=== PATIENT | female | born 2000 | race Caucasian/White ===

== ENCOUNTER 2022-07-04 23:03 | Emergency (ER) | payer OTHER, SELFPAY ==
[2022-07-04 23:14] VITALS: BP 118/78; PULSE 83; RESP 18; TEMP 36.7; O2SAT 99; BMI 34.4
--- NOTE | 2022-07-04 23:21 | ED.GENADULT ---
HPI - General Adult General Time Seen by Provider: 23:21 <Juan Macdonald MD - Last Filed: 07/10/22 00:07> Date Seen: 07/04/22 <Juan Macdonald MD - Last Filed: 07/10/22 00:07> Chief complaint: Psychiatric Problem/Disorder <Juan Macdonald MD - Last Filed: 07/10/22 00:07> Stated complaint: Mental health <Juan Macdonald MD - Last Filed: 07/10/22 00:07> Time Seen by Provider: 07/04/22 23:15 <Juan Macdonald MD - Last Filed: 07/10/22 00:07> Source: patient and RN notes reviewed <Juan Macdonald MD - Last Filed: 07/10/22 00:07> Mode of arrival: ambulatory <Juan Macdonald MD - Last Filed: 07/10/22 00:07> Limitations: no limitations <Juan Macdonald MD - Last Filed: 07/10/22 00:07> History of Present Illness HPI narrative: 21-year-old female who comes in today with mental health evaluation. Patient reports increased feeling of depression for last 6-8 months, although on further interview it sounds like she was seing a therapist last year as well. She is on fluoxetine. She presents today with suicide ideation. She says that she has had some compulsive tendencies of changing her clothes frequently when she comes in goes from her room having ?clean clothes and contaminated clothes. She says she was less able to make this transition night which is unusual for her and then found herself looking around her room for thinks she can use to hurt herself or kill herself. She reports that she has had previous suicide ideation with thoughts of jumping off buildings on campus. No prior suicide attempts. Denies prior mental health admission. <Juan Macdonald MD - Last Filed: 07/10/22 00:07> Related Data Home medications: Home Medications Medication Instructions Recorded Confirmed fluoxetine 20 mg capsule (Prozac) 20 mg PO DAILY 07/04/22 07/04/22 <Juan Macdonald MD - Last Filed: 07/10/22 00:07> Allergies/adverse reactions: Allergies Allergy/AdvReac Type Severity Reaction Status Date / Time No Known Drug Allergies Allergy Verified 07/04/22 23:18 <Juan Macdonald MD - Last Filed: 07/10/22 00:07> [facility] Medical History: Medical History (Updated 07/04/22 @ 23:29 by Juan Macdonald MD) Anxiety Depression OCD (obsessive compulsive disorder) <Juan Macdonald MD - Last Filed: 07/10/22 00:07> Surgical History: Surgical History (Updated 07/04/22 @ 23:20 by Gordon Fitzpatrick RN) No significant past surgical history <Juan Macdonald MD - Last Filed: 07/10/22 00:07> Social History: Social History Smoking Status: Never smoker Do you use any of these nicotine containing products: None Second hand tobacco smoke exposure: No How often do you have a drink containing alcohol: never How often do you have six or more drinks on one occasion: Never AUDIT-C Alcohol total score: 0 Non-prescribed substance use: denies use <Juan Macdonald MD - Last Filed: 07/10/22 00:07> Exam Narrative: Exam Narrative: General: Well-developed and well-nourished, no acute distress Head: Atraumatic and normocephalic Eyes: Pupils are equal reactive, extraocular motions intact, conjunctiva clear ENT: External nose and ears are normal, posterior pharynx without erythema or exudate Neck: No midline cervical tenderness, full spontaneous range of motion the neck, trachea midline, no adenopathy Heart: Regular rate and rhythm no murmurs or thrills Lungs: Clear to auscultation bilaterally without wheezes or crackles Abdomen: Soft, nontender, nondistended with active bowel sounds Musculoskeletal: No tenderness, deformity, or edema Neurologic: Awake, alert, and oriented x3, no gross focal neurologic deficits, cranial nerves intact as tested Psych: Mood appropriate, occasional poor eye contact, fidgeting Skin: No rashes <Juan Macdonald MD - Last Filed: 07/10/22 00:07> Const: Vital Signs, click to edit/add: Vital Signs - 24 hr 07/04/22 23:14 Temperature 98.0 F Pulse Rate [Right Pulse Oximeter] 83 Respiratory Rate 18 Blood Pressure [Ri ght Upper Arm] 118/78 Pulse Oximetry 99 Oxygen Delivery Me thod Room Air <Juan Macdonald MD - Last Filed: 07/10/22 00:07> Vital Signs, click to edit/add: Vital Signs - 24 hr 07/04/22 23:14 Temperature 98.0 F Pulse Rate [Right Pulse Oximeter] 83 Respiratory Rate 18 Blood Pressure [Ri ght Upper Arm] 118/78 Pulse Oximetry 99 Oxygen Delivery Me thod Room Air <Alexa Ybarra MD - Last Filed: 07/05/22 05:26> Course Course Hospital Course: Patient seen and examined, prior records are reviewed. Patient with increasing depression over the last several months, suicide ideation with plan tonight. Labs ordered to medically clear patient for behavioral health admission, the deck assessment requested. Plan sign out to oncoming provider at change of shift. <Juan Macdonald MD - Last Filed: 07/10/22 00:07> Vital Signs Vital signs: Initial Vital Signs Temperature 98.0 F 07/04/22 23:14 Temperature Source Temporal Artery Scan 07/04/22 23:14 Pulse Rate 83 07/04/22 23:14 Respiratory Rate 18 07/04/22 23:14 Blood Pressure 118/78 07/04/22 23:14 Blood Pressure Mean 91 07/04/22 23:14 Blood Pressure Position Sitting 07/04/22 23:14 Pulse Oximetry 99 07/04/22 23:14 Oxygen Delivery Method 07/04/22 23:14 Vital Signs Temperature 98.0 F 07/04/22 23:14 Pulse Rate 83 07/04/22 23:14 Respiratory Rate 18 07/04/22 23:14 Blood Pressure 118/78 07/04/22 23:14 Pulse Oximetry 99 07/04/22 23:14 Oxygen Delivery Method 07/04/22 23:14 Temperature 98.0 F 07/05/22 06:00 Pulse Rate 83 07/05/22 06:00 Respiratory Rate 18 07/05/22 06:00 Blood Pressure 118/78 07/05/22 06:00 Pulse Oximetry 99 07/04/22 23:14 Oxygen Delivery Method 07/04/22 23:14 <Juan Macdonald MD - Last Filed: 07/10/22 00:07> Initial Vital Signs Temperature 98.0 F 07/04/22 23:14 Temperature Source Temporal Artery Scan 07/04/22 23:14 Pulse Rate 83 07/04/22 23:14 Respiratory Rate 18 07/04/22 23:14 Blood Pressure 118/78 07/04/22 23:14 Blood Pressure Mean 91 07/04/22 23:14 Blood Pressure Position Sitting 07/04/22 23:14 Pulse Oximetry 99 07/04/22 23:14 Oxygen Delivery Method 07/04/22 23:14 Vital Signs Temperature 98.0 F 07/04/22 23:14 Pulse Rate 83 07/04/22 23:14 Respiratory Rate 18 07/04/22 23:14 Blood Pressure 118/78 07/04/22 23:14 Pulse Oximetry 99 07/04/22 23:14 Oxygen Delivery Method 07/04/22 23:14 Temperature 98.0 F 07/05/22 06:00 Pulse Rate 83 07/05/22 06:00 Respiratory Rate 18 07/05/22 06:00 Blood Pressure 118/78 07/05/22 06:00 Pulse Oximetry 99 07/04/22 23:14 Oxygen Delivery Method 07/04/22 23:14 <Alexa Ybarra MD - Last Filed: 07/05/22 05:26> Medical Decision Making MDM Narrative Medical decision making narrative: DEC reports suicidal ideation, no trigger or distinct plan. works with school, has OP plan for therapy already. Future oriented, willing to safety plan, will stay with therapist as planned but is willing to work with a transition therapist temporarily. FEels safe returning home with roommates who can help for the next few days. Declines hospitalization, assess or does not think this is necessary at this time as she has a firm outpatient plan. <Alexa Yabrra MD - Last Filed: 07/05/22 05:26> Lab Data Lab results reviewed: Yes I reviewed the patient's lab results <Alexa Ybarra MD - Last Filed: 07/05/22 05:26> Labs: Lab Results 07/04/22 07/04/22 07/04/22 Range/Units 23:24 23:35 23:35 WBC (4.50-11.00) K/uL RBC (4.00-5.20) m/uL Hgb (12.0-16.0) gm/dL Hct (33.0-51.0) % MCV (80-100) fL MCH (26-34) pg MCHC (32-36) gm/dL RDW Coeff of Christianne (11.5-15.5) % Plt Count (140-440) K/uL Neut % (Auto) (42.0-72.0) % Lymph % (Auto) (20-44) % [place] % (Auto) (0.0-11.0) % Eos % (Auto) (0.0-7.0) % Baso % (Auto) (0.0-3.0) % Neut # (Auto) (1.7-7.0) K/uL Lymph # (Auto) (0.90-2.90) K/uL [place] # (Auto) (0.00-0.90) K/UL Eos # (Auto) (0.00-0.50) K/uL Baso # (Auto) (0.00-0.30) K/uL Sodium (135-149) mmol/L Potassium (3.6-5.1) mmol/L Chloride (96-114) mmol/L Carbon Dioxide (20-32) mmol/L BUN (5-24) mg/dL Creatinine (0.5-1.5) mg/dL Estimated Creat Clear Estimated GFR ml/min Glucose (60-115) mg/dL Calcium (8.4-10.6) mg/dL Total Bilirubin 0.5 (0.1-1.5) mg/dL Direct Bilirubin 0.3 (0.0-0.5) mg/dL AST 50 H (12-35) U/L ALT 63 H (4-35) U/L Alkaline Phosphatase 97 (40-150) U/L Total Protein 8.2 (6.0-8.3) g/dL Albumin 4.8 (3.3-5.0) g/dL TSH 6.020 H (0.270-4.200) uIU/mL Free T4 (0.70-1.85) ng/dL HCG, Qual (Negative) Urine Color (Yellow) Urine Appearance (Clear) Urine pH (5.0-8.5) Ur Specific [place] (1.000-1.030) Urine Protein (Negative) Urine Glucose (UA) (Negative) Urine Ketones (Negative) Urine Blood (Negative) Urine Nitrite (Negative) Urine Bilirubin (Negative) Urine Urobilinogen (0.2-1.0) Ur Leukocyte Esterase (Negative) Urine RBC (0-2) Urine WBC (0-5) Ur Squamous Epith Cells (None-Few) Urine Bacteria (None) Urine Mucus (None) Urine Opiates Screen (Negative) Ur Oxycodone Screen (Negative) Urine Methadone Screen (Negative) Ur Propoxyphene Screen (Negative) Ur Barbiturates Screen (Negative) U Tricyclic Antidepress (Negative) Ur Phencyclidine Scrn (Negative) Ur Amphetamines Screen (Negative) U Methamphetamines Scrn (Negative) U Benzodiazepines Scrn (Negative) Urine Cocaine Screen (Negative) U Marijuana (THC) Screen (Negative) Ur Drug Screen Comment Ethyl Alcohol < 0.01 L (0.01-0.03) % SARS-CoV-2 (PCR) Negative SARS-CoV-2 (Negative) Influenza Type A (PCR) Negative PCR FLU A (Negative) Influenza Type B (PCR) Negative PCR FLU B (Negative) 07/04/22 07/04/22 07/04/22 Range/Units 23:35 23:35 23:35 WBC 8.59 (4.50-11.00) K/uL RBC 5.08 (4.00-5.20) m/uL Hgb 14.7 (12.0-16.0) gm/dL Hct 43.2 (33.0-51.0) % MCV 85 (80-100) fL MCH 29 (26-34) pg MCHC 34 (32-36) gm/dL RDW Coeff of Christianne 11.9 (11.5-15.5) % Plt Count 357 (140-440) K/uL Neut % (Auto) 55.4 (42.0-72.0) % Lymph % (Auto) 32.1 (20-44) % [place] % (Auto) 9.9 (0.0-11.0) % Eos % (Auto) 1.6 (0.0-7.0) % Baso % (Auto) 0.3 (0.0-3.0) % Neut # (Auto) 4.75 (1.7-7.0) K/uL Lymph # (Auto) 2.76 (0.90-2.90) K/uL [place] # (Auto) 0.90 (0.00-0.90) K/UL Eos # (Auto) 0.14 (0.00-0.50) K/uL Baso # (Auto) 0.03 (0.00-0.30) K/uL Sodium 141 (135-149) mmol/L Potassium 3.7 (3.6-5.1) mmol/L Chloride 106 (96-114) mmol/L Carbon Dioxide 25 (20-32) mmol/L BUN 16 (5-24) mg/dL Creatinine 0.6 (0.5-1.5) mg/dL Estimated Creat Clear 118.29 Estimated GFR 132 ml/min Glucose 93 (60-115) mg/dL Calcium 9.7 (8.4-10.6) mg/dL Total Bilirubin (0.1-1.5) mg/dL Direct Bilirubin (0.0-0.5) mg/dL AST (12-35) U/L ALT (4-35) U/L Alkaline Phosphatase (40-150) U/L Total Protein (6.0-8.3) g/dL Albumin (3.3-5.0) g/dL TSH (0.270-4.200) uIU/mL Free T4 0.83 (0.70-1.85) ng/dL HCG, Qual (Negative) Urine Color (Yellow) Urine Appearance (Clear) Urine pH (5.0-8.5) Ur Specific [place] (1.000-1.030) Urine Protein (Negative) Urine Glucose (UA) (Negative) Urine Ketones (Negative) Urine Blood (Negative) Urine Nitrite (Negative) Urine Bilirubin (Negative) Urine Urobilinogen (0.2-1.0) Ur Leukocyte Esterase (Negative) Urine RBC (0-2) Urine WBC (0-5) Ur Squamous Epith Cells (None-Few) Urine Bacteria (None) Urine Mucus (None) Urine Opiates Screen (Negative) Ur Oxycodone Screen (Negative) Urine Methadone Screen (Negative) Ur Propoxyphene Screen (Negative) Ur Barbiturates Screen (Negative) U Tricyclic Antidepress (Negative) Ur Phencyclidine Scrn (Negative) Ur Amphetamines Screen (Negative) U Methamphetamines Scrn (Negative) U Benzodiazepines Scrn (Negative) Urine Cocaine Screen (Negative) U Marijuana (THC) Screen (Negative) Ur Drug Screen Comment Ethyl Alcohol (0.01-0.03) % SARS-CoV-2 (PCR) (Negative) Influenza Type A (PCR) (Negative) Influenza Type B (PCR) (Negative) 07/04/22 07/04/22 Range/Units 23:51 23:51 WBC (4.50-11.00) K/uL RBC (4.00-5.20) m/uL Hgb (12.0-16.0) gm/dL Hct (33.0-51.0) % MCV (80-100) fL MCH (26-34) pg MCHC (32-36) gm/dL RDW Coeff of Christianne (11.5-15.5) % Plt Count (140-440) K/uL Neut % (Auto) (42.0-72.0) % Lymph % (Auto) (20-44) % [place] % (Auto) (0.0-11.0) % Eos % (Auto) (0.0-7.0) % Baso % (Auto) (0.0-3.0) % Neut # (Auto) (1.7-7.0) K/uL Lymph # (Auto) (0.90-2.90) K/uL [place] # (Auto) (0.00-0.90) K/UL Eos # (Auto) (0.00-0.50) K/uL Baso # (Auto) (0.00-0.30) K/uL Sodium (135-149) mmol/L Potassium (3.6-5.1) mmol/L Chloride (96-114) mmol/L Carbon Dioxide (20-32) mmol/L BUN (5-24) mg/dL Creatinine (0.5-1.5) mg/dL Estimated Creat Clear Estimated GFR ml/min Glucose (60-115) mg/dL Calcium (8.4-10.6) mg/dL Total Bilirubin (0.1-1.5) mg/dL Direct Bilirubin (0.0-0.5) mg/dL AST (12-35) U/L ALT (4-35) U/L Alkaline Phosphatase (40-150) U/L Total Protein (6.0-8.3) g/dL Albumin (3.3-5.0) g/dL TSH (0.270-4.200) uIU/mL Free T4 (0.70-1.85) ng/dL HCG, Qual Negative (Negative) Urine Color Yellow (Yellow) Urine Appearance Slightly Cloudy A (Clear) Urine pH 7.0 (5.0-8.5) Ur Specific [place] 1.020 (1.000-1.030) Urine Protein Negative (Negative) Urine Glucose (UA) Negative (Negative) Urine Ketones Negative (Negative) Urine Blood Negative (Negative) Urine Nitrite Negative (Negative) Urine Bilirubin Negative (Negative) Urine Urobilinogen 0.2 (0.2-1.0) Ur Leukocyte Esterase Negative (Negative) Urine RBC 0-2 (0-2) Urine WBC 0-2 (0-5) Ur Squamous Epith Cells Few (None-Few) Urine Bacteria Few A (None) Urine Mucus Few A (None) Urine Opiates Screen Negative (Negative) Ur Oxycodone Screen Negative (Negative) Urine Methadone Screen Negative (Negative) Ur Propoxyphene Screen Negative (Negative) Ur Barbiturates Screen Negative (Negative) U Tricyclic Antidepress Negative (Negative) Ur Phencyclidine Scrn Negative (Negative) Ur Amphetamines Screen Negative (Negative) U Methamphetamines Scrn Negative (Negative) U Benzodiazepines Scrn Negative (Negative) Urine Cocaine Screen Negative (Negative) U Marijuana (THC) Screen Negative (Negative) Ur Drug Screen Comment See Note Ethyl Alcohol (0.01-0.03) % SARS-CoV-2 (PCR) (Negative) Influenza Type A (PCR) (Negative) Influenza Type B (PCR) (Negative) <Juan Macdonald MD - Last Filed: 07/10/22 00:07> Lab Results 07/04/22 07/04/22 07/04/22 Range/Units 23:24 23:35 23:35 WBC (4.50-11.00) K/uL RBC (4.00-5.20) m/uL Hgb (12.0-16.0) gm/dL Hct (33.0-51.0) % MCV (80-100) fL MCH (26-34) pg MCHC (32-36) gm/dL RDW Coeff of Christianne (11.5-15.5) % Plt Count (140-440) K/uL Neut % (Auto) (42.0-72.0) % Lymph % (Auto) (20-44) % [place] % (Auto) (0.0-11.0) % Eos % (Auto) (0.0-7.0) % Baso % (Auto) (0.0-3.0) % Neut # (Auto) (1.7-7.0) K/uL Lymph # (Auto) (0.90-2.90) K/uL [place] # (Auto) (0.00-0.90) K/UL Eos # (Auto) (0.00-0.50) K/uL Baso # (Auto) (0.00-0.30) K/uL Sodium (135-149) mmol/L Potassium (3.6-5.1) mmol/L Chloride (96-114) mmol/L Carbon Dioxide (20-32) mmol/L BUN (5-24) mg/dL Creatinine (0.5-1.5) mg/dL Estimated Creat Clear Estimated GFR ml/min Glucose (60-115) mg/dL Calcium (8.4-10.6) mg/dL Total Bilirubin 0.5 (0.1-1.5) mg/dL Direct Bilirubin 0.3 (0.0-0.5) mg/dL AST 50 H (12-35) U/L ALT 63 H (4-35) U/L Alkaline Phosphatase 97 (40-150) U/L Total Protein 8.2 (6.0-8.3) g/dL Albumin 4.8 (3.3-5.0) g/dL TSH 6.020 H (0.270-4.200) uIU/mL Free T4 (0.70-1.85) ng/dL HCG, Qual (Negative) Urine Color (Yellow) Urine Appearance (Clear) Urine pH (5.0-8.5) Ur Specific [place] (1.000-1.030) Urine Protein (Negative) Urine Glucose (UA) (Negative) Urine Ketones (Negative) Urine Blood (Negative) Urine Nitrite (Negative) Urine Bilirubin (Negative) Urine Urobilinogen (0.2-1.0) Ur Leukocyte Esterase (Negative) Urine RBC (0-2) Urine WBC (0-5) Ur Squamous Epith Cells (None-Few) Urine Bacteria (None) Urine Mucus (None) Urine Opiates Screen (Negative) Ur Oxycodone Screen (Negative) Urine Methadone Screen (Negative) Ur Propoxyphene Screen (Negative) Ur Barbiturates Screen (Negative) U Tricyclic Antidepress (Negative) Ur Phencyclidine Scrn (Negative) Ur Amphetamines Screen (Negative) U Methamphetamines Scrn (Negative) U Benzodiazepines Scrn (Negative) Urine Cocaine Screen (Negative) U Marijuana (THC) Screen (Negative) Ur Drug Screen Comment Ethyl Alcohol < 0.01 L (0.01-0.03) % SARS-CoV-2 (PCR) Negative SARS-CoV-2 (Negative) Influenza Type A (PCR) Negative PCR FLU A (Negative) Influenza Type B (PCR) Negative PCR FLU B (Negative) 07/04/22 07/04/22 07/04/22 Range/Units 23:35 23:35 23:35 WBC 8.59 (4.50-11.00) K/uL RBC 5.08 (4.00-5.20) m/uL Hgb 14.7 (12.0-16.0) gm/dL Hct 43.2 (33.0-51.0) % MCV 85 (80-100) fL MCH 29 (26-34) pg MCHC 34 (32-36) gm/dL RDW Coeff of Christianne 11.9 (11.5-15.5) % Plt Count 357 (140-440) K/uL Neut % (Auto) 55.4 (42.0-72.0) % Lymph % (Auto) 32.1 (20-44) % [place] % (Auto) 9.9 (0.0-11.0) % Eos % (Auto) 1.6 (0.0-7.0) % Baso % (Auto) 0.3 (0.0-3.0) % Neut # (Auto) 4.75 (1.7-7.0) K/uL Lymph # (Auto) 2.76 (0.90-2.90) K/uL [place] # (Auto) 0.90 (0.00-0.90) K/UL Eos # (Auto) 0.14 (0.00-0.50) K/uL Baso # (Auto) 0.03 (0.00-0.30) K/uL Sodium 141 (135-149) mmol/L Potassium 3.7 (3.6-5.1) mmol/L Chloride 106 (96-114) mmol/L Carbon Dioxide 25 (20-32) mmol/L BUN 16 (5-24) mg/dL Creatinine 0.6 (0.5-1.5) mg/dL Estimated Creat Clear 118.29 Estimated GFR 132 ml/min Glucose 93 (60-115) mg/dL Calcium 9.7 (8.4-10.6) mg/dL Total Bilirubin (0.1-1.5) mg/dL Direct Bilirubin (0.0-0.5) mg/dL AST (12-35) U/L ALT (4-35) U/L Alkaline Phosphatase (40-150) U/L Total Protein (6.0-8.3) g/dL Albumin (3.3-5.0) g/dL TSH (0.270-4.200) uIU/mL Free T4 0.83 (0.70-1.85) ng/dL HCG, Qual (Negative) Urine Color (Yellow) Urine Appearance (Clear) Urine pH (5.0-8.5) Ur Specific [place] (1.000-1.030) Urine Protein (Negative) Urine Glucose (UA) (Negative) Urine Ketones (Negative) Urine Blood (Negative) Urine Nitrite (Negative) Urine Bilirubin (Negative) Urine Urobilinogen (0.2-1.0) Ur Leukocyte Esterase (Negative) Urine RBC (0-2) Urine WBC (0-5) Ur Squamous Epith Cells (None-Few) Urine Bacteria (None) Urine Mucus (None) Urine Opiates Screen (Negative) Ur Oxycodone Screen (Negative) Urine Methadone Screen (Negative) Ur Propoxyphene Screen (Negative) Ur Barbiturates Screen (Negative) U Tricyclic Antidepress (Negative) Ur Phencyclidine Scrn (Negative) Ur Amphetamines Screen (Negative) U Methamphetamines Scrn (Negative) U Benzodiazepines Scrn (Negative) Urine Cocaine Screen (Negative) U Marijuana (THC) Screen (Negative) Ur Drug Screen Comment Ethyl Alcohol (0.01-0.03) % SARS-CoV-2 (PCR) (Negative) Influenza Type A (PCR) (Negative) Influenza Type B (PCR) (Negative) 07/04/22 07/04/22 Range/Units 23:51 23:51 WBC (4.50-11.00) K/uL RBC (4.00-5.20) m/uL Hgb (12.0-16.0) gm/dL Hct (33.0-51.0) % MCV (80-100) fL MCH (26-34) pg MCHC (32-36) gm/dL RDW Coeff of [place] (11.5-15.5) % Plt Count (140-440) K/uL Neut % (Auto) (42.0-72.0) % Lymph % (Auto) (20-44) % [place] % (Auto) (0.0-11.0) % Eos % (Auto) (0.0-7.0) % Baso % (Auto) (0.0-3.0) % Neut # (Auto) (1.7-7.0) K/uL Lymph # (Auto) (0.90-2.90) K/uL [place] # (Auto) (0.00-0.90) K/UL Eos # (Auto) (0.00-0.50) K/uL Baso # (Auto) (0.00-0.30) K/uL Sodium (135-149) mmol/L Potassium (3.6-5.1) mmol/L Chloride (96-114) mmol/L Carbon Dioxide (20-32) mmol/L BUN (5-24) mg/dL Creatinine (0.5-1.5) mg/dL Estimated Creat Clear Estimated GFR ml/min Glucose (60-115) mg/dL Calcium (8.4-10.6) mg/dL Total Bilirubin (0.1-1.5) mg/dL Direct Bilirubin (0.0-0.5) mg/dL AST (12-35) U/L ALT (4-35) U/L Alkaline Phosphatase (40-150) U/L Total Protein (6.0-8.3) g/dL Albumin (3.3-5.0) g/dL TSH (0.270-4.200) uIU/mL Free T4 (0.70-1.85) ng/dL HCG, Qual Negative (Negative) Urine Color Yellow (Yellow) Urine Appearance Slightly Cloudy A (Clear) Urine pH 7.0 (5.0-8.5) Ur Specific [place] 1.020 (1.000-1.030) Urine Protein Negative (Negative) Urine Glucose (UA) Negative (Negative) Urine Ketones Negative (Negative) Urine Blood Negative (Negative) Urine Nitrite Negative (Negative) Urine Bilirubin Negative (Negative) Urine Urobilinogen 0.2 (0.2-1.0) Ur Leukocyte Esterase Negative (Negative) Urine RBC 0-2 (0-2) Urine WBC 0-2 (0-5) Ur Squamous Epith Cells Few (None-Few) Urine Bacteria Few A (None) Urine Mucus Few A (None) Urine Opiates Screen Negative (Negative) Ur Oxycodone Screen Negative (Negative) Urine Methadone Screen Negative (Negative) Ur Propoxyphene Screen Negative (Negative) Ur Barbiturates Screen Negative (Negative) U Tricyclic Antidepress Negative (Negative) Ur Phencyclidine Scrn Negative (Negative) Ur Amphetamines Screen Negative (Negative) U Methamphetamines Scrn Negative (Negative) U Benzodiazepines Scrn Negative (Negative) Urine Cocaine Screen Negative (Negative) U Marijuana (THC) Screen Negative (Negative) Ur Drug Screen Comment See Note Ethyl Alcohol (0.01-0.03) % SARS-CoV-2 (PCR) (Negative) Influenza Type A (PCR) (Negative) Influenza Type B (PCR) (Negative) <Alexa Ybarra MD - Last Filed: 07/05/22 05:26> Discharge Plan Discharge Clinical Impression: Depression <Juan Macdonald MD - Last Filed: 07/10/22 00:07> Patient Disposition: Home w/ Parent or Adult <Juan Macdonald MD - Last Filed: 07/10/22 00:07> Condition: Improved <Juan Macdonald MD - Last Filed: 07/10/22 00:07> Instructions: Depression (ED) <Juan Macdonald MD - Last Filed: 07/10/22 00:07> Additional Instructions: Keep the safety plan discussed with the therapist today and follow the plan given. Come back to the emergency department if her symptoms worsen or if you have increased suicidal thoughts. <Jaun Macdonald MD - Last Filed: 07/10/22 00:07> Activity Level: No Restrictions <Juan Macdonald MD - Last Filed: 07/10/22 00:07> No Restrictions <Alexa Ybarra MD - Last Filed: 07/05/22 05:26> Discharge Diet: Regular <Juan Macdonald MD - Last Filed: 07/10/22 00:07> Regular <Alexa Ybarra MD - Last Filed: 07/05/22 05:26> Prescriptions: No Action fluoxetine [Prozac] 20 mg capsule 20 mg PO DAILY <Juan Macdonald MD - Last Filed: 07/10/22 00:07> Stand Alone Forms: [facility] Info Instructions <Juan Macdonald MD - Last Filed: 07/10/22 00:07>
[2022-07-04 23:42] LABS: Basophils Absolute Auto 0.03 K/uL (0.00-0.30); Basophils Percent Auto 0.3 % (0.0-3.0); Eosinophils Absolute Auto 0.14 K/uL (0.00-0.50); Eosinophils Percent Auto 1.6 % (0.0-7.0); Hematocrit 43.2 % (33.0-51.0); Hemoglobin* 14.7 gm/dL (12.0-16.0); Immature Granulocytes Abs Auto 0.06 K/uL (0.00-0.30); Immature Granulocytes Pct Auto 0.7 %; Lymphocytes Absolute Auto 2.76 K/uL (0.90-2.90); Lymphocytes Percent Auto 32.1 % (20-44); Mean Corpuscular HGB Conc 34 gm/dL (32-36); Mean Corpuscular Hemoglobin 29 pg (26-34); Mean Corpuscular Volume 85 fL (80-100); Monocytes Percent Auto 9.9 % (0.0-11.0); Neutrophils Absolute Auto 4.75 K/uL (1.7-7.0); Neutrophils Percent Auto 55.4 % (42.0-72.0); Platelet Count* 357 K/uL (140-440); RDW Coefficient of Variation % 11.9 % (11.5-15.5); Red Blood Count 5.08 m/uL (4.00-5.20); White Blood Count* 8.59 K/uL (4.50-11.00)
[2022-07-04 23:44] LABS: Slide Review Reflex No
[2022-07-04 23:58] LABS: Chloride* 106 mmol/L (96-114); Potassium* 3.7 mmol/L (3.6-5.1); Sodium* 141 mmol/L (135-149)
[2022-07-04 23:59] LABS: Albumin* 4.8 g/dL (3.3-5.0)
[2022-07-05 00:01] LABS: Creatinine* 0.6 mg/dL (0.5-1.5); Est. Creatinine Clearance* 118.29; Estimated Glomerular Filt Rate 132 ml/min
[2022-07-05 00:02] LABS: Appearance Urine Slightly Cloudy (Clear); Bilirubin Urine Negative (Negative); Blood Urine Negative (Negative); Color Urine Yellow (Yellow); Glucose Urine Negative (Negative); Ketones Urine Negative (Negative); Leukocyte Esterase Urine Negative (Negative); Nitrite Urine Negative (Negative); Protein Urine Negative (Negative); Urobilinogen Urine 0.2 (0.2-1.0)
[2022-07-05 00:02] LABS: Alkaline Phosphatase* 97 U/L (40-150); Aspartate Amino Transferase* 50 U/L (12-35); Bilirubin Direct* 0.3 mg/dL (0.0-0.5); Bilirubin Total* 0.5 mg/dL (0.1-1.5); Blood Urea Nitrogen* 16 mg/dL (5-24); Calcium* 9.7 mg/dL (8.4-10.6); Carbon Dioxide* 25 mmol/L (20-32); Glucose* 93 mg/dL (60-115); Total Protein* 8.2 g/dL (6.0-8.3)
[2022-07-05 00:03] LABS: Alanine Aminotransferase* 63 U/L (4-35)
[2022-07-05 00:04] LABS: Ethanol* < 0.01 % (0.01-0.03)
[2022-07-05 00:09] LABS: Amphetamine Screen Urine Negative (Negative); Barbiturate Screen Urine Negative (Negative); Benzodiazepines Screen Urine Negative (Negative); Cannabinoid Screen Urine Negative (Negative); Cocaine Screen Urine Negative (Negative); Methadone Screen Urine Negative (Negative); Methamphetamines Screen Urine Negative (Negative); Opiate Screen Urine Negative (Negative); Oxycodone Screen Urine Negative (Negative); Phencyclidine Screen Urine Negative (Negative); Tricyclic Antidepressant Urine Negative (Negative)
[2022-07-05 00:15] LABS: Bacteria Urine Few; HCG Qualitative* Negative (Negative); Mucus Urine Few; RBC Urine 0-2 (0-2); Squamous Epithelial Cell Urine Few (None-Few); WBC Urine 0-2 (0-5)
[2022-07-05 00:20] LABS: PCR FLU A Negative PCR FLU A (Negative); PCR FLU B Negative PCR FLU B (Negative)
[2022-07-05 00:22] LABS: SARS PCR* Negative SARS-CoV-2 (Negative)
[2022-07-05 01:13] LABS: Free T4 Free Thyroxine* 0.83 ng/dL (0.70-1.85)
[2022-07-05 06:00] VITALS: BP 118/78; PULSE 83; RESP 18; TEMP 36.7
--- NOTE | 2022-07-05 06:00 | ED.NURSE ---
Reviewed safety plan/follow-up care plan with Pt, signed and copy given to Pt.
== END 2022-07-05 06:00 | disposition home or self-care (01) ==
PROVIDERS: Family Medicine; Emergency Provider Family Medicine
DX: F32.A Depression, unspecified (principal)
CPT/HCPCS: 36415; 80048; 80076; 80306; 81001; 82077; 84439; 84443; 84703; 85025; 87086; 87631; 99283; 99285